=== PATIENT | male | born 1985 | race African-American/Black ===

== ENCOUNTER 2021-08-21 00:49 | Emergency (ER) | payer SELFPAY ==
[~2021-08-21] VITALS: Ht 170.2 cm; Wt 70.5 kg
--- NOTE | 2021-08-21 01:54 | PHYS DOC ---
General Adult EDM: Chief Complaint: HALLUCINATIONS AUDIBLE/VISUAL HPI: HPI: Patient is a 35 year old male who admits to marijuana and methamphetamine use earlier today who presents with EMS. Patient reportedly had EMS called for him at the [facility] for concerns of irregular behavior. At that time they did not transport. Later in the evening the patient came up to the firehouse station and rang the doorbell. He related concerns of hearing and seeing spirits to EMS. No SI/HI. Here when I asked him what brings him to the emergency department he very slowly states "life". When I asked why he went to the fire station he states "because I am not from here." Patient states that he snorts meth. Denies IVDU, however he does have a syringe on his person. Patient declines to give any further history. Review of Systems: Review of Systems: Cannot conduct a full ROS due to mental status/substance abuse Heart Score: C/O Chest Pain: No Allergies: Allergies: Allergies Coded Allergies Type Severity Reaction Last Updated Verified Penicillins Allergy Intermediate 08/21/21 Yes acetaminophen Allergy Intermediate 08/21/21 Yes orange juice Allergy Intermediate 08/21/21 Yes Physical Exam: PE: Constitutional: Well developed, well nourished, no acute distress HENT: Bilateral conjunctival injection, pupils dilated Neck: Normal range of motion, no tenderness, supple, no stridor. [] Cardiovascular: Tachycardic and regular, no murmur [] Lungs & Thorax: Bilateral breath sounds clear to auscultation [] Abdomen: Bowel sounds normal, soft, no tenderness, no masses, no pulsatile masses. [] Extremities: No tenderness, no cyanosis, no clubbing, ROM intact, no edema. [] Neurologic: Alert, oriented to person, place, time. face symmetric, speech slow but not slurred, moving all extremities with normal coordination and strength. Gait steady. Psychologic: Disorganized, appears paranoid, becoming very scared with basic things such as blood pressure cuff. Eyes are frequently darting across the room. Speech is slow. Denies SI/HI. EKG: EKG: [] Radiology/Procedures: Radiology/Procedures: [] Course & Med Decision Making: Course & Med Decision Making Pertinent Labs and Imaging studies reviewed. (See chart for details) Patient is a 35-year-old male who admits to polysubstance abuse including meth and THC today who presented with EMS initially complaining of auditory and visual hallucinations. He has multiple pieces of drug paraphernalia on his person. On arrival is mildly tachycardic, hypertensive, and has disorganized thought consistent with methamphetamine intoxication. Patient is very resistant to allow any laboratory work-up or even vital signs. Suspect substance intoxication, will allow him to metabolize and monitor for improvement. 0153 Pt is requesting discharge. At this time he is oriented to person, place, time, and situation. He denies SI/HI. I have encouraged him to sleep here in the ED until morning. 0214 He does not have a place to stay, but still wishes to discharge. At this time I do not feel that I have the right to hold him against his will. I asked if I could provide him with RSI or group home resources and he declined. 0214 Tristan Disclaimer: Tristan Disclaimer: This electronic medical record was generated, in whole or in part, using a voice recognition dictation system. Departure Departure Impression: Primary Impression: Methamphetamine abuse Disposition: 01 HOME / SELF CARE / HOMELESS Condition: STABLE Referrals: NON,STAFF (PCP) Additional Instructions: 01/02 Crisis Stabilization services are available for adults at: [facility] [address] [address] For a 24-hour crisis hotline call: [phone] EDIN BOX MD Aug 21, 2021 01:54
[2021-08-21 02:09] VITALS: BP 159/96
== END 2021-08-21 03:30 | disposition home or self-care (01) ==
LOC: ER 00:49
DX: F15.10 Other stimulant abuse, uncomplicated (principal); Z88.0 Allergy status to penicillin; Z88.6 Allergy status to analgesic agent; Z91.018 Allergy to other foods
CPT/HCPCS: 99283

== ENCOUNTER 2021-08-28 17:43 | Emergency (ER) | payer SELFPAY ==
[~2021-08-28] VITALS: Ht 170.2 cm; Wt 68.0 kg
--- NOTE | 2021-08-28 18:04 | PHYS DOC ---
Past Medical History Additional Past Medical Histor: PATIENT STATED ALLERGIES HOWEVER NO MEDICALL HISTORY Past Surgical History: Other Additional Past Surgical Histo: UNKNOWN Smoking Status: Current Every Day Smoker Alcohol Use: Occasionally General Adult HPI: HPI: Patient is a 35 year old Male who presents with dental pain in the upper right back molar. Dental caries seen. Patient tried to open a bottle with his back teeth. Patient states has been going on for the last week or so. Patient states about 2 months ago he had to have a tooth pulled at [facility]. Rates his pain a 10 out of 10. Denies any other past medical history. Denies fever, facial swelling, syncope, nausea, vomiting, throat pain. Review of Systems: Review of Systems: Constitutional: Denies fever or chills. [] Eyes: Denies change in visual acuity. [] HENT: Denies nasal congestion or sore throat. +Dental Pain[] Respiratory: Denies cough or shortness of breath. [] Cardiovascular: Denies chest pain or edema. [] GI: Denies abdominal pain, nausea, vomiting, bloody stools or diarrhea. [] : Denies dysuria. [] Musculoskeletal: Denies back pain or joint pain. [] Integument: Denies rash. [] Neurologic: Denies headache, focal weakness or sensory changes. [] Endocrine: Denies polyuria or polydipsia. [] Lymphatic: Denies swollen glands. [] Psychiatric: Denies depression or anxiety. [] Heart Score: C/O Chest Pain: No Allergies: Allergies: Allergies Coded Allergies Type Severity Reaction Last Updated Verified Penicillins Allergy Intermediate 08/21/21 Yes acetaminophen Allergy Intermediate 08/21/21 Yes orange juice Allergy Intermediate 08/21/21 Yes Physical Exam: PE: Constitutional: Well developed, well nourished, no acute distress, non-toxic appearance. [] HENT: Normocephalic, atraumatic, bilateral external ears normal, oropharynx moist, no oral exudates, nose normal. Right upper back molar dental juan.[] Eyes: PERRLA, EOMI, conjunctiva normal, no discharge. [] Neck: Normal range of motion, no tenderness, supple, no stridor. [] Cardiovascular:Heart rate regular rhythm, no murmur [] Lungs & Thorax: Bilateral breath sounds clear to auscultation [] Abdomen: Bowel sounds normal, soft, no tenderness, no masses, no pulsatile masses. [] Skin: Warm, dry, no erythema, no rash. [] Back: No tenderness, no CVA tenderness. [] Extremities: No tenderness, no cyanosis, no clubbing, ROM intact, no edema. [] Neurologic: Alert and oriented X 3, normal motor function, normal sensory function, no focal deficits noted. [] Psychologic: Affect normal, judgement normal, mood normal. [] EKG: EKG: [] Radiology/Procedures: Radiology/Procedures: [] Course & Med Decision Making: Course & Med Decision Making Pertinent Labs and Imaging studies reviewed. (See chart for details) See HPI. Alert and oriented x4. Ambulatory steady gait. Skin pink warm and dry. Appears homeless. No facial swelling. No pain under the tongue with palpation. He can fully open his mouth. No signs of Ludwigs. No trismus. Right back upper molar dental juan but also the tooth appears broken. After speaking to him he also claims that he is recently homeless, having family problems and has been off of his schizophrenic and bipolar medications also did meth 2 days ago and does drink regularly. None of which she is done today. Patient is having suicidal ideation without plan. PAT called. Patient is asking for home medications of 50mg Zoloft, 25mg Hydroxyzine, Trileptal 300mg, Gabapentin 600mg. Teresa from [facility] is here to see the patient and possibly try to get him to [facility]. [] Tristan Disclaimer: Tristan Disclaimer: This electronic medical record was generated, in whole or in part, using a voice recognition dictation system. Departure Departure Impression: Primary Impression: Pain, dental Additional Impression: Suicidal ideations [facility]position: [facility] Condition: STABLE Referrals: NON,STAFF (PCP) Patient Instructions: Dental Pain, Substance Abuse-Brief, Suicidal Feelings, How to Help Yourself Additional Instructions: Follow up with Dentist. Get all of your medications restarted. Take Ibuprofen for your Dental pain. JEEVAN DURAN APRN Aug 28, 2021 18:04
[2021-08-28] MEDS ORDERED: traMADol 50 MG TABLET PO ONE (18:30)
[2021-08-28 18:36] LABS: BASO # 0.1 x10^3/uL (0.0-0.2); BASO % 2 % (0-3); EOS # 0.4 x10^3/uL (0.0-0.7); EOS % 11 % (0-3); HEMATOCRIT 45.2 % (39.0-53.0); HEMOGLOBIN 14.5 g/dL (13.0-17.5); LYMPH # 1.5 x10^3/uL (1.0-4.8); LYMPH % 36 % (24-48); MEAN CORPUSCULAR HEMOGLOBIN 25 pg (25-35); MEAN CORPUSCULAR HGB CONC 32 g/dL (31-37); MEAN CORPUSCULAR VOLUME 77 fL (79-100); MONO # 0.3 x10^3/uL (0.0-1.1); MONO % 8 % (0-9); NEUT # 1.8 x10^3/uL (1.8-7.7); NEUT % 44 % (31-73); PLATELET COUNT 312 x10^3/uL (140-400); RED BLOOD COUNT 5.85 x10^6/uL (4.30-5.70); RED CELL DISTRIBUTION WIDTH 17.2 % (11.5-14.5); WHITE BLOOD COUNT 4.2 x10^3/uL (4.0-11.0)
[2021-08-28 18:44] LABS: CALCIUM 8.8 mg/dL (8.5-10.1); CREATININE 0.6 mg/dL (0.7-1.3); GFR 184.5
[2021-08-28 18:50] LABS: ACETAMIN < 2 mcg/ml (10-30); SALIC 0.3 mg/dL (2.8-20.0)
[2021-08-28 18:51] LABS: ETHANOL < 10 mg/dL (0-10)
[2021-08-28 19:10] LABS: BILIRUBIN,URINE NEGATIVE (NEG); CLARITY,URINE CLEAR; COLOR,URINE YELLOW; NITRITE,URINE NEGATIVE (NEG); PROTEIN,URINE NEGATIVE (NEG-TRACE)
[2021-08-28 19:17] LABS: AMPHETAMINE/METHAMPHETAMINE NEG (NEG); BARBITURATES NEG (NEG); BENZODIAZEPINES NEG (NEG); CANNABINOIDS NEG (NEG); COCAINE NEG (NEG); METHADONE NEG (NEG); OPIATES NEG (NEG); PHENCYCLIDINE NEG (NEG)
[2021-08-28 19:20] LABS: AMORPHOUS SEDIMENT,UR PRESENT /HPF; BACTERIA,URINE 0 /HPF (0-FEW); RBC,URINE 0 /HPF (0-2); WBC,URINE 0 /HPF (0-4)
[2021-08-28] MEDS ORDERED: GABAPENTIN 300 MG CAPSULE. PO ONE (19:45)
[2021-08-28] MEDS ORDERED: hydrOXYzine 25 MG TABLET PO ONE (19:45)
[2021-08-28] MEDS ORDERED: OXcarbazepine 300 MG TABLET PO ONE (19:45)
[2021-08-28] MEDS ORDERED: SERTRALINE 50 MG TABLET. PO ONE (19:45)
[2021-08-28] MEDS ORDERED: KETOROLAC 60 MG/2 ML VIAL. IM ONE (20:30)
[2021-08-28 21:59] VITALS: BP 160/71
== END 2021-08-28 22:02 ==
LOC: ER 17:43
DX: R45.851 Suicidal ideations (principal); Z20.822 Contact with and (suspected) exposure to COVID-19; K08.89 Other specified disorders of teeth and supporting structures; F17.200 Nicotine dependence, unspecified, uncomplicated; Z88.0 Allergy status to penicillin; Z88.6 Allergy status to analgesic agent; Z91.018 Allergy to other foods
CPT/HCPCS: 80048; 80307; 80329; 81001; 85025; 87426; 99285; C9803; G0480; U0003